=== PATIENT | male | born 1945 | race Caucasian/White ===

== ENCOUNTER 2016-12-03 15:26 | Emergency (ER) | payer MEDICARE ==
[~2016-12-03] VITALS: Ht 175.3 cm; Wt 89.6 kg
[2016-12-03] MEDS ORDERED: INSU100V5 SQ-INSULIN (15:52)
[2016-12-03] MEDS ORDERED: OXYMETAZOLINE NASAL SPRAY 0.05%, 15ML ONE (15:53)
[2016-12-03] MEDS ORDERED: SILVER NITRATE STICK TP ONE (15:54)
[2016-12-03 16:10] VITALS: BP 171/106
== END 2016-12-03 16:23 | disposition home or self-care (01) ==
LOC: ED 16:00
DX: R04.0 Epistaxis (principal); E11.9 Type 2 diabetes mellitus without complications
CPT/HCPCS: 30901; 93005

== ENCOUNTER 2016-12-07 11:11 | Emergency (ER) | payer OTHER ==
[~2016-12-07] VITALS: Ht 175.3 cm; Wt 90.9 kg
[~2016-12-07 11:11] MED LIST: INSU100V5 SQ-INSULIN
[2016-12-07 11:14] VITALS: BP 180/77
== END 2016-12-07 12:04 | disposition home or self-care (01) ==
LOC: ED 11:31
DX: T17.1XXA Foreign body in nostril, initial encounter (principal); X58.XXXA Exposure to other specified factors, initial encounter; Y93.89 Activity, other specified; Y92.89 Other specified places as the place of occurrence of the external cause; Y99.8 Other external cause status
CPT/HCPCS: 30300